=== PATIENT | female | born 1950 | race Caucasian/White ===

== ENCOUNTER 2018-05-19 12:26 | Inpatient (IN) | payer OTHER ==
[2018-05-19] MEDS ORDERED: NA CHLORIDE 0.9% 2,000 ML ONE (14:39)
[2018-05-19 16:40] LABS: ALT/SGPT 36 U/L (12-78); AST/SGOT 58 U/L (15-37); Albumin 2.1 g/dL (3.4-5.0); Alkaline Phosphatase 137 U/L (45-117); BUN Blood Urea Nitrogen 9 mg/dL (7-18); Bicarbonate 33 mmol/L (21-32); Bilirubin Direct 0.3 mg/dL (0-0.2); Bilirubin Total 0.7 mg/dL (0.2-1.0); Creatine Phosphokinase 286 U/L (26-192); Glucose Level 121 mg/dL (74-106); Protein, Total 6.7 g/dL (6.4-8.2); Sodium Level 142 mmol/L (136-145); Troponin (Emerg Dept Use Only) < 0.02 ng/mL (0.0-0.045)
[2018-05-19 16:42] LABS: Absolute Lymphocytes (CBC) 0.8 K/uL (0.7-4.9); Absolute Monocytes 0.6 K/uL (0.1-1.3); Absolute Neutrophil 16.9 K/uL (1.8-8.0); Basophils % 0.1 % (0-1.3); Hematocrit 31.4 % (36.0-45.0); Lymphocytes % 4.1 % (15.3-44.8); MPV 8.5 fL (7.6-11.3); Monocytes % 3.4 % (3.3-12.3)
[2018-05-19 16:44] LABS: Protime INR 1.09
[2018-05-19 16:56] LABS: Potassium 2.4 mmol/L (3.5-5.1)
[2018-05-19 17:17] LABS: Urine Bacteria LOADED /HPF (<20); Urine Culture Reflex Order REFLEXED; Urine RBC <5 /HPF (NONE SEEN)
[2018-05-19 17:44] LABS: Blood Morphology Comment NOT SEEN (NOT SEEN); Platelet Estimate ADEQ
--- NOTE | 2018-05-19 18:02 | RAD REPORT ---
EXAM DESCRIPTION: CT - Abdomen Pelvis W Contrast - 05/19/2018 5:29 pm CLINICAL HISTORY: Abdominal pain COMPARISON: none. TECHNIQUE: Computed axial tomography of the abdomen pelvis was obtained. 100 cc Isovue-300 was admin istered intravenously. Oral contrast was not requested which limits evaluation of bowel. All CT scans are performed using dose optimization technique as appropriate and may include automated exposure control or mA/KV adjustment according to patient size. FINDINGS: The liver, spleen, pancreas, adrenal and kidneys appear unremarkable. There is no evidence of diverticulitis. The appendix is normal Gallbladder is been removed. Pneumobilia Decubitus ulcer involves the buttocks. Air extends into right ischial rectal fossa. Small amount of i ll-defined fluid is seen. A drainable abscess is not noted. A lucency is present within the inferior coccyx suspicious for osteomyelitis Heterotopic bone formation abuts right ilium A West catheter is place IMPRESSION: Buttock decubitus ulcer. Air extends into right ischial rectal fossa with a small amount of ill-defined fluid. A drainable abscess is not seen. Small lucency within the inferior coccyx consistent with osteomyelitis
--- NOTE | 2018-05-19 18:03 | RAD REPORT ---
EXAM DESCRIPTION: Umberto Single View05/19/2018 4:55 pm CLINICAL HISTORY: Fever COMPARISON: none FINDINGS: The lungs appear clear of acute infiltrate. The heart is normal size IMPRESSION: No acute abnormalities displayed
[2018-05-19] MEDS ORDERED: KCL 20 MEQ/100 mL IVPB 20 MEQ/100 ML BAG IV ONE (18:04)
[2018-05-19] MEDS ORDERED: PIPER/TAZO/NS 3.375gm 3.375 GM/100 ML BAG ONE (18:04)
[2018-05-19] MEDS ORDERED: VANCOMYCIN/NS 1 gm 1 GM/250 ML BAG IV ONE (19:00)
[2018-05-19] MEDS ORDERED: NA CHLORIDE 0.9% 1,000 ML ONE (19:06)
[2018-05-19 20:22] LABS: Urine Blood 2+ (NEG); Urine Glucose NEGATIVE (NEG); Urine Protein 2+ (NEG); Urine Specific Gravity >1.030 (1.005-1.030)
--- NOTE | 2018-05-19 20:37 | RAD REPORT ---
EXAM DESCRIPTION: MRI - Lumbar Spine Wo Con - 05/19/2018 8:05 pm CLINICAL HISTORY: Back pain/decubitus ulcer TECHNIQUE: Sagittal T1, T2 and STIR weighted sequences were obtained. Axial T1 and T2 sequences were obtained through the lumbar disc levels. FINDINGS: L1-2 and L2-3 are unremarkable. Mild spondylosis L3-4 and L4-5 result in mild narrowing of the left neural foramina. L5-S1 is unremarkable. No significant abnormal signal within the bones is noted. IMPRESSION: Mild spondylosis L3-4 and L4-5 resulting mild left foraminal stenosis No evidence of osteomyelitis involving the lumbar spine or visualized sacrum. The lower sacrum and co ccyx were not imaged
--- NOTE | 2018-05-19 21:21 | EDPHYS ---
Physician Documentation [facility] Name: Yarelis Rivera Age: 67 yrs Sex: Female : 1950 Arrival Date: 05/19/2018 Time: 12:28 Bed 7 Private MD: ED Physician Toni Vasquez HPI: 05/19 13:30 This 67 yrs old Female presents to ER via Wheelchair with complaints of Skin cp Sore(s). 13:30 The patient presents with cellulitis of the sacrum/coccyx area. cp 13:30 Description: erythematous, warm, chronic open wound. Onset: The symptoms/episode cp began/occurred for months. Associated signs and symptoms: Pertinent positives: drainage, erythema, Pertinent negatives: fever. Severity of symptoms: in the emergency department the symptoms are actually worse. Historical: - Allergies: 12:38 No Known Allergies; sv - PSHx: 12:38 brain; sv - Immunization history:: Adult Immunizations unknown. - Social history:: Smoking status: Patient/guardian denies using tobacco. - Ebola Screening: : No symptoms or risks identified at this time. ROS: 13:35 Constitutional: Negative for fever. cp 13:35 Skin: Positive for erythema, chronic wound of sacrum/coccyx area. cp 13:35 Unable to obtain ROS due to patient non-verbal. Exam: 13:45 Head/Face: Normocephalic, atraumatic. cp 13:45 Constitutional: The patient appears in no acute distress, alert, awake, non-diaphoretic, non-toxic, well developed, frail. 13:45 Eyes: Periorbital structures: appear normal, Pupils: equal, round, and reactive to light and accomodation, Conjunctiva: normal, no exudate, no injection, Sclera: no appreciated abnormality, Lids and lashes: appear normal, bilaterally. 13:45 ENT: External ear(s): are unremarkable, Ear canal(s): are normal, clear, TM's: bulging, is not appreciated, bilaterally, dullness, bilaterally, erythema, is not appreciated, bilaterally, Nose: is normal, Mouth: Lips: dry, Oral mucosa: dry, Posterior pharynx: Airway: no evidence of obstruction, patent. 13:45 Chest/axilla: Inspection: normal, Palpation: is normal, no crepitus, no tenderness. 13:45 Cardiovascular: Rate: tachycardic, Rhythm: regular, Pulses: Pulses are 2+ in right radial artery, right femoral artery and left radial artery. Edema: is not appreciated, JVD: is not appreciated. 13:45 Respiratory: the patient does not display signs of respiratory distress, Respirations: cp normal, no use of accessory muscles, no retractions, no splinting, no tachypnea, labored breathing, is not present, Breath sounds: are clear throughout, no decreased breath sounds, no stridor, no wheezing. 13:45 Abdomen/GI: Inspection: abdomen appears normal, Bowel sounds: active, all quadrants, Palpation: abdomen is soft and non-tender, in all quadrants. 13:45 Musculoskeletal/extremity: Extremities: the patient is contracted, diffusely. 13:45 Skin: noted pressure ulcer sacrum/coccyx area with surrounding erythema, mild purulent drainage . Vital Signs: 12:38 BP 130 / 66; Pulse 146; Resp 18; Temp 97.9; Pulse Ox 95% ; sv 13:20 Weight 58.97 kg; ph 13:30 BP 112 / 43; Pulse 126; Resp 16; Pulse Ox 100% on R/A; ph 14:30 BP 126 / 68; Pulse 125; Resp 18; Pulse Ox 97% on R/A; ph 15:30 BP 122 / 75; Pulse 115; Resp 18; Pulse Ox 95% on R/A; ph 16:33 BP 131 / 76; Pulse 109; Resp 18; Pulse Ox 97% on R/A; ph 17:30 BP 130 / 73; Pulse 104; Resp 18; Pulse Ox 100% on R/A; dh3 18:21 BP 123 / 68; Pulse 100; Resp 17; Pulse Ox 100% on R/A; dh3 19:20 BP 120 / 71; Pulse 101; Resp 18; Pulse Ox 98% on R/A; hb 20:18 BP 136 / 71; Pulse 92; Resp 17; Pulse Ox 95% on R/A; mt 20:21 BP 136 / 71; Pulse 91; Resp 20 S; Pulse Ox 97% on R/A; jd3 21:20 BP 140 / 87; Pulse 95; Resp 17; Pulse Ox 100% on R/A; mt 21:46 BP 135 / 77; Pulse 93; Resp 19 S; Pulse Ox 99% on R/A; jd3 22:28 BP 141 / 93; Pulse 91; Resp 17 S; Pulse Ox 100% on R/A; jd3 Procedures: 16:00 Central Line: the site was prepped with Betadine, in sterile fashion, a triple lumen cp catheter was inserted, in the right femoral vein, in 2 attempts. placement was verified, by blood return, the site was dressed with using sterile technique, the patient tolerated the procedure, well. MDM: 12:47 Patient medically screened. cp 18:39 Physician consultation: Jose Crandall MD was called at 18:39, was contacted at 18:39, cp regarding admission, to the medical/surgical unit. patient's condition, would like further tests performed, MRI. 20:15 Physician consultation: was contacted at 20:05, regarding regarding transfer, to [facility]. patient's condition, DR Antoni Franco, orthospinal surgery with [facility] in [facility], refuses transfer of patient at this time. States management of patient is medical with IV antibiotics for osteomyelitis of coccyx and surgery is not indicated at this time since CT was negative for drainable abscess. 20:45 Data reviewed: vital signs, nurses notes, lab test result(s), radiologic studies, CT cp scan, MRI, plain films, I have discussed the patient's presentation/case with the attending Emergency Department Physician;. 21:15 Physician consultation: Zohaib Collado MD was contacted at 21:15, regarding admission, cp to the medical/surgical unit. patient's condition, would like consultation with Dr. Nash. 05/19 13:14 Order name: C-Reactive Protein 05/19 13:14 Order name: Sed Rate 05/19 13:14 Order name: Urine Culture 05/19 13:14 Order name: Wound Culture 05/19 13:14 Order name: Basic Metabolic Panel; Complete Time: 17:04 05/19 17:04 Interpretation: Normal except: K 2.4; CO2 33; GLUC 121; CRE 0.41; CA 8.1. 05/19 13:14 Order name: Blood Culture Adult (2) 05/19 13:14 Order name: CBC with Diff; Complete Time: 18:16 05/19 17:05 Interpretation: Normal except: WBC 18.3; RBC 3.60; HGB 10.3; HCT 31.4; CHIQUITA% 92.4; LYM% cp 4.1; NEUT A 16.9. 05/19 13:14 Order name: Ckmb; Complete Time: 17:04 cp 05/19 13:14 Order name: CPK; Complete Time: 17:04 cp 05/19 13:14 Order name: Lactate; Complete Time: 17:04 cp 05/19 17:05 Interpretation: Abnormal: LAC 2.9. cp 05/19 13:14 Order name: LFT's; Complete Time: 17:04 cp 05/19 13:14 Order name: Procalcitonin; Complete Time: 17:04 cp 05/19 17:05 Interpretation: Abnormal: Procalcitonin 1.16. cp 05/19 13:14 Order name: Protime (+inr); Complete Time: 17:04 cp 05/19 13:14 Order name: Ptt, Activated; Complete Time: 17:04 cp 05/19 13:14 Order name: Troponin (emerg Dept Use Only); Complete Time: 17:04 cp 05/19 17:05 Interpretation: Within normal limits: TROPED < 0.02. cp 05/19 13:14 Order name: Urine Microscopic Only; Complete Time: 17:31 cp 05/19 17:31 Interpretation: Normal except: UWBC 10-20; UBACT LOADED. cp 05/19 13:14 Order name: Chest Single View XRAY; Complete Time: 18:16 cp 05/19 13:15 Order name: C-Reactive Protein; Complete Time: 17:04 EDMS 05/19 13:15 Order name: Sedimentation Rate, Westergren; Complete Time: 18:16 EDMS 05/19 13:15 Order name: Urine Culture EDMA 05/19 13:15 Order name: Wound Culture EDMA 05/19 16:15 Order name: Urine Dipstick--Ancillary (enter results); Complete Time: 20:26 kj1 05/19 17:42 Order name: Manual Differential; Complete Time: 18:16 EDMS 05/19 19:08 Order name: Lactate; Complete Time: 20:26 ph 05/19 22:11 Order name: CBC with Automated Diff EDMA 05/19 22:11 Order name: Comprehensive Metabolic Panel EDMA 05/19 22:11 Order name: Basic Metabolic Panel EDMA 05/19 22:16 Order name: Magnesium [facility] 05/19 22:16 Order name: Phosphorus [facility] 05/19 13:14 Order name: Accucheck; Complete Time: 16:23 05/19 13:14 Order name: Cardiac monitoring; Complete Time: 16:23 05/19 13:14 Order name: EKG - Nurse/Tech; Complete Time: 16:23 05/19 13:14 Order name: IV Saline Lock - Large Bore; Complete Time: 16:23 05/19 13:14 Order name: Labs collected and sent; Complete Time: 16:22 05/19 13:14 Order name: O2 Per Protocol; Complete Time: 16:22 05/19 13:14 Order name: O2 Sat Monitoring; Complete Time: 16:22 05/19 13:14 Order name: Urine Dipstick-Ancillary (obtain specimen); Complete Time: 16:22 05/19 13:14 Order name: West; Complete Time: 16:22 05/19 14:15 Order name: Central Line Kit; Complete Time: 16:22 05/19 15:40 Order name: CT Abd/Pelvis - W/Contrast; Complete Time: 18:16 05/19 18:42 Order name: MRI Lumbar Spine wo Con; Complete Time: 20:38 05/19 20:40 Interpretation: Report reviewed. 05/19 22:16 Order name: CONS Pharmacy Consult [facility] 05/19 22:16 Order name: NPO [facility] Administered Medications: 16:22 Drug: NS 0.9% (30 ml/kg) 30 ml/kg Route: IV; Rate: bolus; Site: right femoral; ph 19:19 Follow up: Response: No adverse reaction; IV Status: Completed infusion ph 18:30 Drug: NS 0.9% 1000 ml Route: IV; Rate: 100 ml/hr; Site: right femoral; ph 19:20 Follow up: Response: No adverse reaction; IV Status: Infusion continued upon admission ph 19:00 Drug: Zosyn 3.375 grams Route: IVPB; Infused Over: 60 mins; Site: right femoral; ph 20:24 Follow up: Response: No adverse reaction; IV Status: Completed infusion; IV Intake: cc3 100ml 19:00 Drug: Potassium Chloride 20 mEq Route: IV; Rate: calculated rate; Site: right femoral; ph 22:56 Follow up: Response: No adverse reaction; IV Status: Completed infusion jd3 19:25 Drug: vancoMYCIN 1 grams Route: IVPB; Infused Over: 2 hrs; Site: right femoral; jd3 22:57 Follow up: Response: No adverse reaction; IV Status: Completed infusion jd3 Disposition: 23:15 Chart complete. cp 05/20 07:36 Co-signature as Attending Physician, Toni Vasquez MD I agree with the assessment and wa plan of care. Disposition: 05/19/18 21:20 Hospitalization ordered by Zohaib Collado for Inpatient Admission. Preliminary diagnosis are Other sepsis, Osteomyelitis of vertebra, sacral and sacrococcygeal region, Urinary tract infection, site not specified, Pressure ulcer of buttock. - Bed requested for Telemetry/MedSurg (Inpatient). - Status is Inpatient Admission. jd3 - Condition is Stable. - Problem is new. - Symptoms have improved. UTI on Admission? No Critical care time excluding procedures: 05/19 23:15 Critical care time: Bedside Care: 35 minutes, Consultation: 15 minutes, Family cp Intervention: 5 minutes. Total time: 55 minutes Signatures: Dispatcher [employer] EDMA Ashlie Corral RN RN sv Hall, Patricia, RN RN ph Page, Corey, FRANSISCO PA cp Toni Vasquez MD MD wa Davies, Jonathon, RN RN jRei Russo RN RN ja1 Chiquita Malcolm cc3 Corrections: (The following items were deleted from the chart) 17:04 17:04 Normal except: K 2.4; CO2 33; GLUC 121; CRE 0.41. cp cp 17:42 17:00 CBC Smear Scan ordered. EDMA EDMS 21:22 21:20 Hospitalization Ordered by Zohaib Collado MD for Inpatient Admission. Preliminary cp diagnosis is Other sepsis; Osteomyelitis of vertebra, sacral and sacrococcygeal region. Bed requested for Telemetry/MedSurg (Inpatient). Status is Inpatient Admission. Condition is Stable. Problem is new. Symptoms have improved. UTI on Admission? No. cp 22:18 21:22 05/19/2018 21:20 Hospitalization Ordered by Zohaib Collado MD for Inpatient ja1 Admission. Preliminary diagnosis is Other sepsis; Osteomyelitis of vertebra, sacral and sacrococcygeal region; Urinary tract infection, site not specified; Pressure ulcer of buttock. Bed requested for Telemetry/MedSurg (Inpatient). Status is Inpatient Admission. Condition is Stable. Problem is new. Symptoms have improved. UTI on Admission? No. cp 23:10 22:18 05/19/2018 21:20 Hospitalization Ordered by Zohaib Collado MD for Inpatient jd3 Admission. Preliminary diagnosis is Other sepsis; Osteomyelitis of vertebra, sacral and sacrococcygeal region; Urinary tract infection, site not specified; Pressure ulcer of buttock. Bed requested for Telemetry/MedSurg (Inpatient). Status is Inpatient Admission. Condition is Stable. Problem is new. Symptoms have improved. UTI on Admission? No. ja1
--- NOTE | 2018-05-19 21:21 | ER ---
Nurse's Notes [facility] Name: Yarelis Rivera Age: 67 yrs Sex: Female : 1950 Arrival Date: 05/19/2018 Time: 12:28 Bed 7 Private MD: Diagnosis: Other sepsis;Osteomyelitis of vertebra, sacral and sacrococcygeal region;Urinary tract infection, site not specified;Pressure ulcer of buttock Presentation: 05/19 12:37 Presenting complaint: Child states: "Home health told me to come in. Her bed sores are sv getting worse." Bed sores have been there for months. Transition of care: patient was not received from another setting of care. Onset of symptoms is unknown. Care prior to arrival: None. 12:37 Method Of Arrival: Wheelchair sv 12:37 Acuity: KIRK 2 sv 13:10 Initial Sepsis Screen: Does the patient meet any 2 criteria? Mean Arterial Pressure ph (MAP) < 65. HR > 90 bpm. 13:13 Risk Assessment: Do you want to hurt yourself or someone else? Patient reports no ph desire to harm self or others. Initial Sepsis Screen: Does the patient have a suspected source of infection? Yes: Skin breakdown/wound. Historical: - Allergies: 12:38 No Known Allergies; sv - PSHx: 12:38 brain; sv - Immunization history:: Adult Immunizations unknown. - Social history:: Smoking status: Patient/guardian denies using tobacco. - Ebola Screening: : No symptoms or risks identified at this time. Screenin:06 Abuse screen: Denies threats or abuse. Denies injuries from another. Nutritional ph screening: No deficits noted. Tuberculosis screening: No symptoms or risk factors identified. Fall Risk No fall in past 12 months (0 pts). Secondary diagnosis (15 points) impaired mobility, IV access (20 points). Ambulatory Aid- None/Bed Rest/Nurse Assist (0 pts). Gait- Normal/Bed Rest/Wheelchair (0 pts) Mental Status- Overestimates/Forgets Limitations (15 pts.). Total Savage Fall Scale indicates High Risk Score (45 or more points). Fall prevention measures have been instituted. Side Rails Up X 2 Placed Close to Nursing Station Frequent Obs/Assessments Occuring Family Present and informed to notify staff if the need to leave the bedside As available patient and family educated on Fall Prevention Program and Strategies. Assessment: 13:00 General: Appears in no apparent distress. uncomfortable, ill, emaciated, Behavior is ph drowsy, flat, quiet. Pain: Unable to use pain scale. FLACC scale score is 4 out of 10. Neuro: Level of Consciousness is awake, lethargic, Oriented to person, place, pt non-verbal. Cardiovascular: Capillary refill < 3 seconds in bilateral fingers Patient's skin is warm and dry. Rhythm is sinus tachycardia. Respiratory: Airway is patent Respiratory effort is even, unlabored, Respiratory pattern is regular, symmetrical. GI: Abdomen is flat, non-distended, Patient currently denies diarrhea, nausea, vomiting. : No signs and/or symptoms were reported regarding the genitourinary system. Derm: Skin is fragile, is thin, Skin is pink, warm \\T\\ dry. Decubitus located on sacrum approximately 1.5 cm to 2.5 cm is unstageable. bed has eschar present. Musculoskeletal: Circulation, motion, and sensation intact. Range of motion: limited in R arm and vickie legs. 14:30 Reassessment: Patient appears in no apparent distress at this time. No changes from ph previously documented assessment. Pt cleaned of stool, hard and round in appearance, clean brief now in place, multiple peripheral IV attempts unsuccessful, ERP notified. 15:00 Reassessment: Patient appears in no apparent distress at this time. Patient and/or ph family updated on plan of care and expected duration. Pain level reassessed. ERP at bedside to attempt IV in LEJ, attempt unsuccessful, will attempt central line. 15:25 Reassessment: Patient appears in no apparent distress at this time. Patient and/or ph family updated on plan of care and expected duration. Pain level reassessed. Gómez Man and Dr Vasquez at bedside to place central line. 16:30 Reassessment: Patient appears in no apparent distress at this time. Patient and/or ph family updated on plan of care and expected duration. Pain level reassessed. Pt resting quietly, HR improved to 107, other VSS, son at bedside. 17:30 Reassessment: Patient appears in no apparent distress at this time. No changes from ph previously documented assessment. Patient and/or family updated on plan of care and expected duration. Pain level reassessed. 18:30 Reassessment: Patient appears in no apparent distress at this time. No changes from ph previously documented assessment. Patient and/or family updated on plan of care and expected duration. Pain level reassessed. Pt resting quietly, awaiting admission orders and room assignment. 19:30 Reassessment: Patient appears in no apparent distress at this time. No changes from jd3 previously documented assessment. Patient and/or family updated on plan of care and expected duration. Pain level reassessed. 19:35 Reassessment: to MRI with tech. jd3 20:21 Reassessment: Patient appears in no apparent distress at this time. Patient and/or jd3 family updated on plan of care and expected duration. Pain level reassessed. pt back from MRI. 21:46 Reassessment: Patient appears in no apparent distress at this time. No changes from jd3 previously documented assessment. Patient and/or family updated on plan of care and expected duration. Pain level reassessed. 22:28 Reassessment: Patient appears in no apparent distress at this time. No changes from jd3 previously documented assessment. Patient and/or family updated on plan of care and expected duration. Pain level reassessed. 22:55 Reassessment: Patient appears in no apparent distress at this time. Patient and/or jd3 family updated on plan of care and expected duration. Pain level reassessed. report called, awaiting paperwork from registration for admission. Vital Signs: 12:38 BP 130 / 66; Pulse 146; Resp 18; Temp 97.9; Pulse Ox 95% ; sv 13:20 Weight 58.97 kg; ph 13:30 BP 112 / 43; Pulse 126; Resp 16; Pulse Ox 100% on R/A; ph 14:30 BP 126 / 68; Pulse 125; Resp 18; Pulse Ox 97% on R/A; ph 15:30 BP 122 / 75; Pulse 115; Resp 18; Pulse Ox 95% on R/A; ph 16:33 BP 131 / 76; Pulse 109; Resp 18; Pulse Ox 97% on R/A; ph 17:30 BP 130 / 73; Pulse 104; Resp 18; Pulse Ox 100% on R/A; dh3 18:21 BP 123 / 68; Pulse 100; Resp 17; Pulse Ox 100% on R/A; dh3 19:20 BP 120 / 71; Pulse 101; Resp 18; Pulse Ox 98% on R/A; hb 20:18 BP 136 / 71; Pulse 92; Resp 17; Pulse Ox 95% on R/A; mt 20:21 BP 136 / 71; Pulse 91; Resp 20 S; Pulse Ox 97% on R/A; jd3 21:20 BP 140 / 87; Pulse 95; Resp 17; Pulse Ox 100% on R/A; mt 21:46 BP 135 / 77; Pulse 93; Resp 19 S; Pulse Ox 99% on R/A; jd3 22:28 BP 141 / 93; Pulse 91; Resp 17 S; Pulse Ox 100% on R/A; jd3 Vitals: 15:30 Cardiac Rhythm Assessment Sinus tach. ph ED Course: 12:28 Patient arrived in ED. tw3 12:37 Triage completed. sv 12:38 Arm band placed on. sv 12:47 Gómez Man PA is PHCP. cp 12:47 Toni Vasquez MD is Attending Physician. cp 12:48 Belinda Cotton, RN is Primary Nurse. ph 13:07 Patient has correct armband on for positive identification. Placed in gown. Bed in low ph position. Call light in reach. Side rails up X 1. director multimedia on. Pulse ox on. NIBP on. Warm blanket given. Pillow given. Turned to right side. pillows placed behind back, between legs, and beneath vickie heels. 13:26 Missed attempt(s): 22 gauge in left hand. Bleeding controlled, band aid applied, pc1 catheter tip intact. 15:00 One-on-one care X 90 minutes. ph 15:00 Missed attempt(s): 20 gauge in left EJ. Bleeding controlled, band aid applied, catheter ph tip intact. 15:08 Radiology exam delayed due to DOCTOR IN ROOM, TREATMENT. WILL TRY AGAIN. 1 15:25 Assisted provider with central line placement. Set up central line tray. Triple lumen ph line placed in right femoral. Line placed by Toni Vasquez MD Placement verified by CXR, blood return, Dressed with Tape, Tegaderm, Blood was collected. Patient tolerated well. Before procedure, did Practitioner(s) obtain informed consent? Yes. Patient \\T\\ family education about procedure, CLABSI prevention and S/S of infection? Yes. Time-out/Briefing performed prior to start of procedure? Yes. Was handwashing/sanitizing done immediately prior to procedure? Yes. Was patient positioned to in a way to prevent air embolism? Yes. Was procedure site sterilized? Yes, with Betadine. Was the site allowed to dry? Yes. Was local anesthetic and/or sedation utilized? Yes. During the procedure, did the Practitioner(s) maintain a sterile field? Yes. Were unused ports clamped during insertion? Yes. Was a 2nd qualified MD obtained after 3 unsuccessful insertion attempts? No. Was blood aspirated from each lumen? Yes. After the procedure, did the Practitioner(s) clean the site and apply a sterile dressing? Yes. 15:43 Radiology exam delayed due to PT STILL NOT READY. mh1 15:45 West cath inserted, using sterile technique, 16 Fr., by me, balloon inflated, to ph gravity drainage, urine specimen collected. 15:54 Radiology exam delayed due to lab results not completed at this time. (BUN/Creatinine). vm2 16:51 X-ray completed. Portable x-ray completed in exam room. Patient tolerated procedure ml well. 16:52 Chest Single View XRAY In Process Unspecified. EDMS 17:[address] via stretcher. vm2 17:28 CT completed. Patient tolerated procedure well. Patient moved back from CT. vm2 17:29 Patient moved to MRI via stretcher. em2 17:30 CT Abd/Pelvis - W/Contrast In Process Unspecified. EDMS 19:22 Patient admitted, IV remains in place. ph 20:03 MRI Lumbar Spine wo Con In Process Unspecified. EDMS 20:29 MRI completed. Patient tolerated well. Patient moved back from MRI. em2 21:17 Zohaib Collado MD is Hospitalizing Provider. cp Administered Medications: 16:22 Drug: NS 0.9% (30 ml/kg) 30 ml/kg Route: IV; Rate: bolus; Site: right femoral; ph 19:19 Follow up: Response: No adverse reaction; IV Status: Completed infusion ph 18:30 Drug: NS 0.9% 1000 ml Route: IV; Rate: 100 ml/hr; Site: right femoral; ph 19:20 Follow up: Response: No adverse reaction; IV Status: Infusion continued upon admission ph 19:00 Drug: Zosyn 3.375 grams Route: IVPB; Infused Over: 60 mins; Site: right femoral; ph 20:24 Follow up: Response: No adverse reaction; IV Status: Completed infusion; IV Intake: cc3 100ml 19:00 Drug: Potassium Chloride 20 mEq Route: IV; Rate: calculated rate; Site: right femoral; ph 22:56 Follow up: Response: No adverse reaction; IV Status: Completed infusion jd3 19:25 Drug: vancoMYCIN 1 grams Route: IVPB; Infused Over: 2 hrs; Site: right femoral; jd3 22:57 Follow up: Response: No adverse reaction; IV Status: Completed infusion jd3 Intake: 20:24 IV: 100ml; Total: 100ml. cc3 Outcome: 21:20 Decision to Hospitalize by Provider. cp 22:54 Admitted to Tele accompanied by tech, via stretcher, room 228, with chart, Report jd3 called to Jackie ROMO 22:54 Condition: stable 22:54 Instructed on the need for admit. 23:10 Patient left the ED. eddie Signatures: Dispatcher [employer] Ashlie Rosa RN RN Bijal Gomez 1 Brett, Edgar Thakur 2 Belinda Cotton RN RN ph Magda, Gómez, PA PA cp Digna Alfredo, RN RN siomara Joy, Genet tw3 Trent, Jacnita 2 [facility] Keven, Vanessa 3 Deo Obregon RN RN jd3 Cordel, Charlene cc3 Riccardo Zhao pc1 Corrections: (The following items were deleted from the chart) 12:41 12:37 Acuity: KIRK 3 sv sv
[2018-05-19] MEDS ORDERED: ONDANSETRON 4 MG/2 ML VIAL IV PRN (22:11)
[2018-05-19] MEDS ORDERED: HYDROMORPHONE HCL 1 MG/ML INJ IV PRN (22:11)
[2018-05-19] MEDS ORDERED: MAGNESIUM HYDROXIDE 8% 30 ML PO PRN (22:11)
[2018-05-19] MEDS ORDERED: ACETAMINOPHEN 500 MG TAB PO PRN (22:11)
[2018-05-19] MEDS ORDERED: VANCOMYCIN/NS 1 gm 1 GM/250 ML BAG IVPB SCH (22:15)
[2018-05-19 23:57] LABS: BUN Blood Urea Nitrogen 6 mg/dL (7-18); Bicarbonate 29 mmol/L (21-32); Glucose Level 111 mg/dL (74-106); Sodium Level 145 mmol/L (136-145)
[2018-05-19 23:58] LABS: Potassium 2.8 mmol/L (3.5-5.1)
[2018-05-20 00:05] VITALS: BMI 19.7
[2018-05-20] MEDS: CLINDAMYCIN PHOSPHATE 600 MG in NA CHLORIDE 0.9% 50 ML IV SCH ×3 (01:00→16:51)
[2018-05-20] MEDS ORDERED: NA CHLORIDE 0.9% 50 ML ONE (02:04)
[2018-05-20] MEDS ORDERED: CLINDAMYCIN IV 150 MG/ML (6 mL) VIAL ONE (02:05)
[2018-05-20] MEDS: Ringers Lactate 1,000 ML IV SCH ×3 (02:50→18:22)
[2018-05-20] MEDS: Levofloxacin500mg IV 500 MG/100 ML BAG IV SCH ×2 (02:51→23:33)
[2018-05-20 06:15] LABS: Absolute Lymphocytes (CBC) 0.9 K/uL (0.7-4.9); Absolute Monocytes 0.4 K/uL (0.1-1.3); Absolute Neutrophil 11.3 K/uL (1.8-8.0); Basophils % 0.2 % (0-1.3); Eosinophils % 0.2 % (0-4.4); Hematocrit 22.8 % (36.0-45.0); Lymphocytes % 7.2 % (15.3-44.8); MPV 8.4 fL (7.6-11.3); Monocytes % 3.3 % (3.3-12.3); RBC Red Blood Cell Count 2.62 M/uL (3.86-4.86)
[2018-05-20 07:00] LABS: Platelet Estimate ADEQ
[2018-05-20 07:01] LABS: Blood Morphology Comment NOT SEEN (NOT SEEN)
[2018-05-20 07:03] LABS: Hematocrit 23.8 % (36.0-45.0)
[2018-05-20 07:06] LABS: Magnesium 1.7 mg/dL (1.8-2.4); Phosphorus 2.4 mg/dL (2.5-4.9)
[2018-05-20] MEDS: VANCOMYCIN/NS 1 gm 1 GM/250 ML BAG IVPB SCH ×2 (08:32→20:30)
[2018-05-20] MEDS: KCL 20 MEQ/100 mL IVPB 20 MEQ/100 ML BAG IV SCH ×3 (08:33→13:29)
[2018-05-20 08:44] LABS: ALT/SGPT 28 U/L (12-78); AST/SGOT 36 U/L (15-37); Albumin 1.5 g/dL (3.4-5.0); Alkaline Phosphatase 90 U/L (45-117); BUN Blood Urea Nitrogen 5 mg/dL (7-18); Bicarbonate 30 mmol/L (21-32); Bilirubin Total 0.4 mg/dL (0.2-1.0); Glucose Level 99 mg/dL (74-106); Protein, Total 4.8 g/dL (6.4-8.2); Sodium Level 145 mmol/L (136-145)
[2018-05-20 08:48] LABS: Potassium 2.5 mmol/L (3.5-5.1)
[2018-05-20] MEDS ORDERED: MAGNESIUM SULFATE 1 gm IVPB 1 GM/100 ML BAG IV ONE (09:00)
[2018-05-20] MEDS: ENOXAPARIN 30 MG/0.3 ML SQ SCH (16:52)
[2018-05-20] MEDS ORDERED: POTASSIUM PHOS IN 0.9 % NACL 15 MMOL/250 ML BAG IV ONE (18:00)
--- NOTE | 2018-05-20 18:24 | P.PN ---
Subjective Date of Service: 05/20/18 Subjective: No new changes Patient seen and examined at bedside. family at bedside. Chart reviewed and case discussed with nursing staff. Review of Systems 10-point ROS is otherwise unremarkable Physical Examination - Vital Signs Temperature: 97.9 F Blood Pressure: 116/60 Pulse: 84 Respirations: 1 Pulse Ox (%): 97 - Physical Exam General: In no apparent distress, Confused (At baseline) HEENT: Atraumatic, PERRLA, EOMI Neck: Supple, JVD not distended Respiratory: Clear to auscultation bilaterally, Normal air movement Cardiovascular: Regular rate/rhythm, Normal S1 S2 Gastrointestinal: Normal bowel sounds Integumentary: Pressure ulcer (Decubitus) - Studies Microbiology Data (last 24 hrs): 05/19/18 20:20 Wound - Skin Gram Stain - Final Assessment And Plan - Current Problems (Diagnosis) (1) Decubitus ulcer of coccyx Current Visit: Yes Status: Acute (2) Dysphagia Current Visit: Yes Status: Acute (3) History of brain tumor Current Visit: Yes Status: Acute (4) Nonhealing nonsurgical wound with necrosis of muscle Current Visit: Yes Status: Acute (5) Status post radiation therapy Current Visit: Yes Status: Acute - Plan Continue with IV antibiotic Continue with local wound care Wound care consultation/surgical consultation Gentle IV hydration Monitor CBC Strict blood sugar monitoring Pain control GI and DVT prophylaxis
--- NOTE | 2018-05-20 20:12 | P.HP ---
Certification for Inpatient Patient admitted to: Inpatient With expected LOS: >2 Midnights Patient will require the following post-hospital care: None Practitioner: I am a practitioner with admitting privileges, knowledge of patient current condition, hospital course, and medical plan of care. Services: Services provided to patient in accordance with Admission requirements found in Title 42 Section 412.3 of the Code of Federal Regulations Patient History Date of Service: 05/19/18 Reason for admission: necrotic decubitus ulcer History of Present Illness: Patient is a 67-year-old female who came to the hospital with generalized weakness and worsening decubitus ulcers. 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 Her son was at bedside and gave most of the history as patient does not have a lot of strength. patient has developed decubitus. Her CT scan in the ER revealed that she had osteomyelitis of the coccyx. However, there was concerning finding that air extends into right ischial rectal fossa with a small amount of ill-defined fluid. My concern was because of the osteomyelitis of the coccyx and the air in the rectal fossa that patient may need higher level of care. We attempted transfer to spine surgery however they would not accept. We also contacted our general surgeon who said he was see the patient. At this time I will cover patient with broad-spectrum IV antibiotic coverage. Will also get infectious disease consultation. Patient appears to be very ill at this time and will need aggressive treatment. We will repeat the CT scan to make sure that there is not expansion of the air over the next 48 hr. I had a long talk with her son who is aware of her current condition. We will monitor her closely. Allergies No Known Allergies Allergy (Unverified 05/19/18 23:44) Home Medications: Atorvastatin Calcium 40 mg PO BEDTIME 05/20/18 Calcium Carbonate/Vitamin D3 [Calcium 600-Vit D3 2,500 Sftgl] 2 tab PO BID 05/20 Clopidogrel Bisulfate [Plavix*] 75 mg PO DAILY 05/20/18 Polymyxin B Sulf/Trimethoprim [Polytrim Eye Drops] 1 drop EACH EYE Q4HR Ranitidine [Zantac*] 1 cap PO BID 05/20/18 levETIRAcetam [Levetiracetam] 15 ml PO BID 05/20/18 - Past Medical/Surgical History Has patient received pneumonia vaccine in the past: Yes Diabetic: No -: Brain tumor -: removal of tumor brain - Family History Father History Unknown: Yes Mother Medical History: Other (see notes) Notes: Alzheimers - Social History Smoking Status: Never smoker Alcohol use: No CD- Drugs: No Caffeine use: Yes Place of Residence: Home Review of Systems 10-point ROS is otherwise unremarkable Physical Examination - Vital Signs Temperature: 97.9 F Blood Pressure: 116/60 Pulse: 84 Respirations: 1 Pulse Ox (%): 97 - Physical Exam General: Alert, In no apparent distress, Oriented x2 HEENT: Atraumatic, PERRLA, Mucous membr. moist/pink, Other ( Alopecia), EOMI, Sclerae nonicteric Neck: Supple, 2+ carotid pulse no bruit, No LAD, Without JVD or thyroid abnormality Respiratory: Clear to auscultation bilaterally, Normal air movement Cardiovascular: Regular rate/rhythm, Normal S1 S2, Systolic murmur Gastrointestinal: Normal bowel sounds, Soft and benign, Non-distended, No tenderness Musculoskeletal: No clubbing, No swelling, No tenderness Integumentary: No rashes Neurological: Normal speech, Normal tone, Sensation intact, Cranial nerves 3-12 intact, Normal affect, Abnormal strength Lymphatics: No axilla or inguinal lymphadenopathy - Studies Microbiology Data (last 24 hrs): 05/19/18 20:20 Wound - Skin Gram Stain - Final Assessment & Plan - Problems (Diagnosis) (1) Decubitus ulcer of coccyx Current Visit: Yes Status: Acute (2) History of brain tumor Current Visit: Yes Status: Acute (3) Status post radiation therapy Current Visit: Yes Status: Acute (4) Dysphagia Current Visit: Yes Status: Acute (5) Nonhealing nonsurgical wound with necrosis of muscle Current Visit: Yes Status: Acute - Plan 1. Continue with IV antibiotic 2. Continue with local wound care 3. Wound care consultation/surgical consultation 4. Gentle IV hydration 5. Monitor CBC 6. Strict blood sugar monitoring 7. Pain control 8. GI and DVT prophylaxis Discharge Plan: Home Plan to discharge in: Greater than 2 days - Advance Directives Does patient have a Living Will: No Does patient have a Durable POA for Healthcare: No - Code Status/Comfort Care Code Status Assessed: Yes Code Status: Full Code Critical Care: No Time Spent Managing PTS Care (In Minutes): 60
[2018-05-20] MEDS: JUVEN PACKET PO SCH (20:33)
[2018-05-20] MEDS ORDERED: POTASSIUM CL 40 MEQ in NA CHLORIDE 0.9% 500 ML IV SCH (21:00)
[2018-05-21] MEDS: CLINDAMYCIN PHOSPHATE 600 MG in NA CHLORIDE 0.9% 50 ML IV SCH ×3 (00:57→17:29)
[2018-05-21] MEDS: Ringers Lactate 1,000 ML IV SCH ×2 (01:01→17:28)
[2018-05-21 05:26] LABS: BUN Blood Urea Nitrogen 7 mg/dL (7-18); Bicarbonate 28 mmol/L (21-32); Glucose Level 91 mg/dL (74-106); Magnesium 1.9 mg/dL (1.8-2.4); Phosphorus 2.7 mg/dL (2.5-4.9); Potassium 3.2 mmol/L (3.5-5.1); Sodium Level 145 mmol/L (136-145)
[2018-05-21] MEDS ORDERED: BUPIVACAINE 0.5% PF 10 ML VIAL ONE (07:14)
[2018-05-21] MEDS: JUVEN PACKET PO SCH ×2 (09:00→23:08)
[2018-05-21] MEDS: VANCOMYCIN/NS 1 gm 1 GM/250 ML BAG IVPB SCH ×2 (10:22→19:54)
[2018-05-21] MEDS: ENOXAPARIN 30 MG/0.3 ML SQ SCH (10:23)
[2018-05-21] MEDS: KCL 20 MEQ/100 mL IVPB 20 MEQ/100 ML BAG IV SCH ×3 (10:23→22:59)
[2018-05-21] MEDS: COLLAGENASE 30 GM OINTMENT TOP SCH (10:24)
--- NOTE | 2018-05-21 14:01 | P.CNS ---
Date of Consult: 05/21/18 PC: I was asked to see this 67-year-old female regards to a sacral decubitus for evaluation treatment. HPC: This patient is an extensive stroke, dementia, and is bed bound at home, presented emergency room with an open wound on her sacrum. There is foul drainage coming from this wound. PMH: Patient recently had radiation therapy to her brain. Had a benign tumor removed. Also has Alzheimer's. SOC: No known allergies, primary it compliance manager is her signed who takes care of her at home SYS REVIEW: Difficult to obtain O/E awake alert vital signs are stable HEENT: Negative Chest: Chest movement equal bilateral ABD: Soft LOCO: Over the top of the sacrum there is an opening approximate 2.5 cm. It descends down through the buttock on the right side. There is purulent draining coming from it. DATA: CT scan seen IMPRESSION: Deep tunneling wound extending from the sacrum secondary to the fact that she is essentially bed-bound at home PLAN: We will start to try and clean this wound. She is not a surgical candidate. We will its use saline collagenase eccentric to debrided until we can get to a more stable wound. Thank you, will follow with you.
--- NOTE | 2018-05-21 16:32 | P.PN ---
Subjective Date of Service: 05/21/18 Chief Complaint: necrotic decubitus ulcer Subjective: No C/O voiced Patient seen and examined at bedside. family at bedside. Chart reviewed and case discussed with nursing staff. Review of Systems 10-point ROS is otherwise unremarkable Physical Examination - Vital Signs Temperature: 97.9 F Blood Pressure: 116/60 Pulse: 84 Respirations: 1 Pulse Ox (%): 97 - Physical Exam General: Alert, Confused Neck: JVD not distended Respiratory: Normal air movement Cardiovascular: Regular rate/rhythm, Normal S1 S2 Gastrointestinal: Normal bowel sounds Integumentary: Pressure ulcer (Decubitus) - Studies Microbiology Data (last 24 hrs): 05/19/18 15:45 Catheterized Urine Aspers Count - Final >100,000 CFU/ML. 05/19/18 15:45 Catheterized Urine - Final Klebsiella Pneumoniae 05/19/18 20:20 Wound - Skin Gram Stain - Final Assessment And Plan - Current Problems (Diagnosis) (1) Decubitus ulcer of coccyx Current Visit: Yes Status: Acute (2) Dysphagia Current Visit: Yes Status: Acute (3) History of brain tumor Current Visit: Yes Status: Acute (4) Nonhealing nonsurgical wound with necrosis of muscle Current Visit: Yes Status: Acute (5) Status post radiation therapy Current Visit: Yes Status: Acute - Plan Patient Problems: Decubitus ulcer of coccyx (Acute) L89.159 Continue with IV antibiotic Continue with local wound care Wound care consultation/surgical consultation. Recommendations appreciated. Per surgery, not a surgical candidate at this time. Continue with wound care Gentle IV hydration Monitor CBC Strict blood sugar monitoring Pain control Dysphagia (Acute) R13.10 History of brain tumor (Acute) Z87.898 Nonhealing nonsurgical wound with necrosis of muscle (Acute) T14.8XXA, M62.89 Status post radiation therapy (Acute) Z92.3 DVT prophylaxis: Lovenox GI prophylaxis: None Diet: Diabetic/heart healthy Disposition: Pending symptomatic improvement.
[2018-05-21 17:55] LABS: Absolute Lymphocytes (CBC) 1.9 K/uL (0.7-4.9); Absolute Monocytes 0.5 K/uL (0.1-1.3); Absolute Neutrophil 11.1 K/uL (1.8-8.0); Basophils % 0.7 % (0-1.3); Eosinophils % 0.2 % (0-4.4); Hematocrit 25.5 % (36.0-45.0); Lymphocytes % 14.3 % (15.3-44.8); MPV 8.5 fL (7.6-11.3); Monocytes % 3.4 % (3.3-12.3); RBC Red Blood Cell Count 2.91 M/uL (3.86-4.86)
[2018-05-21] MEDS ORDERED: ACETIC ACID 0.25% IRRIG IRR ONE (18:00)
[2018-05-21] MEDS: Levofloxacin500mg IV 500 MG/100 ML BAG IV SCH (22:59)
[2018-05-22] MEDS: CLINDAMYCIN PHOSPHATE 600 MG in NA CHLORIDE 0.9% 50 ML IV SCH ×3 (00:44→18:44)
[2018-05-22] MEDS: KCL 20 MEQ/100 mL IVPB 20 MEQ/100 ML BAG IV SCH ×3 (00:45→22:29)
[2018-05-22] MEDS: Ringers Lactate 1,000 ML IV SCH ×3 (00:51→20:35)
[2018-05-22 05:04] LABS: BUN Blood Urea Nitrogen 10 mg/dL (7-18); Bicarbonate 27 mmol/L (21-32); Glucose Level 110 mg/dL (74-106); Potassium 3.7 mmol/L (3.5-5.1); Sodium Level 143 mmol/L (136-145)
[2018-05-22] MEDS: JUVEN PACKET PO SCH ×2 (09:00→20:23)
[2018-05-22] MEDS: COLLAGENASE 30 GM OINTMENT TOP SCH (09:00)
[2018-05-22] MEDS: VANCOMYCIN/NS 1 gm 1 GM/250 ML BAG IVPB SCH ×2 (10:46→20:23)
[2018-05-22] MEDS: ENOXAPARIN 30 MG/0.3 ML SQ SCH (10:46)
[2018-05-22 11:14] LABS: Absolute Lymphocytes (CBC) 1.3 K/uL (0.7-4.9); Absolute Monocytes 0.4 K/uL (0.1-1.3); Absolute Neutrophil 11.7 K/uL (1.8-8.0); Basophils % 0.2 % (0-1.3); Eosinophils % 0.2 % (0-4.4); Hematocrit 26.7 % (36.0-45.0); Lymphocytes % 9.6 % (15.3-44.8); MPV 9.1 fL (7.6-11.3); Monocytes % 3.2 % (3.3-12.3); RBC Red Blood Cell Count 3.06 M/uL (3.86-4.86)
[2018-05-22 12:32] LABS: Blood Morphology Comment NOT SEEN (NOT SEEN); Platelet Estimate ADEQ; Urine White Blood Cell Casts OK
[2018-05-22] MEDS: Levofloxacin500mg IV 500 MG/100 ML BAG IV SCH (22:29)
[2018-05-23] MEDS: CLINDAMYCIN PHOSPHATE 600 MG in NA CHLORIDE 0.9% 50 ML IV SCH ×3 (00:18→17:07)
[2018-05-23] MEDS: Ringers Lactate 1,000 ML IV SCH ×2 (05:42→17:07)
[2018-05-23 06:35] LABS: BUN Blood Urea Nitrogen 11 mg/dL (7-18); Bicarbonate 28 mmol/L (21-32); Glucose Level 105 mg/dL (74-106); Potassium 3.6 mmol/L (3.5-5.1); Sodium Level 146 mmol/L (136-145)
[2018-05-23] MEDS ORDERED: KCL 20 MEQ/100 mL IVPB 20 MEQ/100 ML BAG IV SCH (08:00)
[2018-05-23] MEDS ORDERED: POTASSIUM 25 MEQ EFFERV TAB PO ONE (09:00)
[2018-05-23] MEDS: ENOXAPARIN 30 MG/0.3 ML SQ SCH (09:16)
[2018-05-23] MEDS: VANCOMYCIN/NS 1 gm 1 GM/250 ML BAG IVPB SCH ×2 (09:17→20:00)
[2018-05-23] MEDS: JUVEN PACKET PO SCH ×2 (09:17→21:10)
[2018-05-23] MEDS: COLLAGENASE 30 GM OINTMENT TOP SCH (09:18)
--- NOTE | 2018-05-23 14:58 | P.PN ---
Subjective Date of Service: 05/22/18 Chief Complaint: necrotic decubitus ulcer Subjective: Improving Patient seen and examined at bedside. family at bedside. Chart reviewed and case discussed with nursing staff. Prior son at bedside, patient back to baseline mentation clarke. Review of Systems 10-point ROS is otherwise unremarkable Physical Examination - Vital Signs Temperature: 97.2 F Blood Pressure: 126/66 Pulse: 93 Respirations: 16 Pulse Ox (%): 95 - Physical Exam General: Confused (Baseline) Respiratory: Clear to auscultation bilaterally, Normal air movement Cardiovascular: No edema Gastrointestinal: Normal bowel sounds Integumentary: Pressure ulcer - Studies Microbiology Data (last 24 hrs): 05/19/18 20:20 Wound - Skin Gram Stain - Final 05/19/18 20:20 Wound - Skin Culture & Sensitivity - Final Streptococcus Pyogenes Assessment And Plan - Current Problems (Diagnosis) (1) Decubitus ulcer of coccyx Current Visit: Yes Status: Acute (2) Dysphagia Current Visit: Yes Status: Acute (3) History of brain tumor Current Visit: Yes Status: Acute (4) Nonhealing nonsurgical wound with necrosis of muscle Current Visit: Yes Status: Acute (5) Status post radiation therapy Current Visit: Yes Status: Acute - Plan Patient Problems: Decubitus ulcer of coccyx (Acute) L89.159 Continue with IV antibiotic Continue with local wound care Wound care consultation/surgical consultation. Recommendations appreciated. Per surgery, not a surgical candidate at this time. Continue with wound care Gentle IV hydration Monitor CBC Strict blood sugar monitoring Pain control Dysphagia (Acute) R13.10 History of brain tumor (Acute) Z87.898 Nonhealing nonsurgical wound with necrosis of muscle (Acute) T14.8XXA, M62.89 Status post radiation therapy (Acute) Z92.3 DVT prophylaxis: Lovenox GI prophylaxis: None Diet: Diabetic/heart healthy Disposition: Pending symptomatic improvement. She will need long-term antibiotics.
--- NOTE | 2018-05-23 14:59 | P.PN ---
Subjective Date of Service: 05/23/18 Chief Complaint: necrotic decubitus ulcer Subjective: No C/O voiced, Improving Patient seen and examined at bedside. family at bedside. Chart reviewed and case discussed with nursing staff. Prior son at bedside, patient back to baseline mentation clarke. More awake this morning. Eating back to baseline. Review of Systems 10-point ROS is otherwise unremarkable Physical Examination - Vital Signs Temperature: 97.2 F Blood Pressure: 126/66 Pulse: 93 Respirations: 16 Pulse Ox (%): 95 - Physical Exam General: In no apparent distress, Confused (Baseline) HEENT: Atraumatic, PERRLA, EOMI Neck: Supple, JVD not distended Respiratory: Clear to auscultation bilaterally, Normal air movement Cardiovascular: Regular rate/rhythm, Normal S1 S2 Gastrointestinal: Normal bowel sounds, No tenderness Musculoskeletal: No tenderness Integumentary: Pressure ulcer Neurological: Normal speech, Normal tone, Normal affect Lymphatics: No axilla or inguinal lymphadenopathy - Studies Microbiology Data (last 24 hrs): 05/19/18 20:20 Wound - Skin Gram Stain - Final 05/19/18 20:20 Wound - Skin Culture & Sensitivity - Final Streptococcus Pyogenes Assessment And Plan - Current Problems (Diagnosis) (1) Decubitus ulcer of coccyx Current Visit: Yes Status: Acute (2) Dysphagia Current Visit: Yes Status: Acute (3) History of brain tumor Current Visit: Yes Status: Acute (4) Nonhealing nonsurgical wound with necrosis of muscle Current Visit: Yes Status: Acute (5) Status post radiation therapy Current Visit: Yes Status: Acute - Plan Patient Problems: Decubitus ulcer of coccyx (Acute) L89.159 Continue with IV antibiotic Continue with local wound care Wound care consultation/surgical consultation. Recommendations appreciated. Per surgery, not a surgical candidate at this time. Continue with wound care Gentle IV hydration Monitor CBC Strict blood sugar monitoring Pain control Dysphagia (Acute) R13.10 History of brain tumor (Acute) Z87.898 Nonhealing nonsurgical wound with necrosis of muscle (Acute) T14.8XXA, M62.89 Status post radiation therapy (Acute) Z92.3 DVT prophylaxis: Lovenox GI prophylaxis: None Diet: Diabetic/heart healthy Disposition: Pending symptomatic improvement. She will need long-term antibiotics. Likely discharge home in the next 24-48 hr on oral antibiotics.
[2018-05-23 23:00] VITALS: O2SAT 96
[2018-05-23] MEDS: Levofloxacin500mg IV 500 MG/100 ML BAG IV SCH (23:15)
[2018-05-24] MEDS: CLINDAMYCIN PHOSPHATE 600 MG in NA CHLORIDE 0.9% 50 ML IV SCH ×2 (00:46→10:48)
[2018-05-24] MEDS: Ringers Lactate 1,000 ML IV SCH (05:12)
[2018-05-24 06:13] LABS: BUN Blood Urea Nitrogen 10 mg/dL (7-18); Bicarbonate 29 mmol/L (21-32); Glucose Level 116 mg/dL (74-106); Magnesium 1.5 mg/dL (1.8-2.4); Phosphorus 3.1 mg/dL (2.5-4.9); Sodium Level 145 mmol/L (136-145)
[2018-05-24] MEDS: KCL 20 MEQ/100 mL IVPB 20 MEQ/100 ML BAG IV SCH ×2 (07:17→10:35)
[2018-05-24] MEDS ORDERED: Magnesium Sulfate 2gm IVPB 2 G/50 ML BAG IV ONE (08:00)
[2018-05-24] MEDS ORDERED: VANCOMYCIN/NS 1 gm 1 GM/250 ML BAG IVPB SCH (09:00)
[2018-05-24] MEDS: JUVEN PACKET PO SCH (09:00)
[2018-05-24] MEDS: ENOXAPARIN 30 MG/0.3 ML SQ SCH (10:35)
[2018-05-24] MEDS: COLLAGENASE 30 GM OINTMENT TOP SCH (10:36)
[2018-05-24 10:39] VITALS: BP 119/59; TEMP 99.6
== END 2018-05-24 13:57 | disposition home health service (06) | DRG 541 ==
LOC: ER 12:26 → ERHOLD 22:11 → 2ND 22:52
PROVIDERS: ADMIT Hospitalist; ATTEND Family Medicine
PROC: 06HM33Z Insertion of Infusion Device into Right Femoral Vein, Percutaneous Approach (ICD-10-PCS; principal; 2018-05-19)
DX: M46.28 Osteomyelitis of vertebra, sacral and sacrococcygeal region (principal); L89.159 Pressure ulcer of sacral region, unspecified stage; R13.10 Dysphagia, unspecified; Z92.3 Personal history of irradiation; Z86.73 Personal history of transient ischemic attack (TIA), and cerebral infarction without residual deficits; G30.9 Alzheimer's disease, unspecified; F02.80 Dementia in other diseases classified elsewhere, unspecified severity, without behavioral disturbance, psychotic disturbance, mood disturbance, and anxiety; Z87.898 Personal history of other specified conditions; T14.8XXA Other injury of unspecified body region, initial encounter; M62.89 Other specified disorders of muscle
CPT/HCPCS: 36415; 51702; 71045; 72148; 74177; 80048; 80053; 80076; 80202; 81003; 81015; 82550; 82553; 83605; 83735; 84100; 84132; 84145; 84484; 85014; 85018; 85025; 85610; 85652; 85730; 86140; 87040; 87070; 87077; 87086; 87088; 87186; 87205; 87493; 96365; 96366; 96367; 97162; 99285; J1170; J1650; J2543; J3370; J3475; J3590; J7030; Q9967; S0077